=== PATIENT | female | born 1960 | race Caucasian/White ===

== ENCOUNTER 2018-02-14 15:15 | Emergency (ER) | payer MEDICARE ==
[~2018-02-14] VITALS: Ht 162.6 cm; Wt 90.7 kg
[~2018-02-14 15:15] MED LIST: ALBIPROI INH; ALBU3IS INH; ALBU90OI; ALBU90OI61 INH; AMLO5 PO; AZIT250 PO; BENA20; BUPR150ER PO; BUPR150T2 PO; BUPROPION; CALCA500CH PO; CEPH500; CEPH500 PO; CLIN300 PO; CLON2; CODBUTACEC PO; COMBIVENT; CORGARD40 MG PO; COUMADIN; CYCL10 PO; Cipro250 MG PO; Cleocin HCl150 MG PO; Cleocin HCl300 MG PO; DIAZ10 PO; DOCSEN PO; DOCU100 PO; DULO60 PO; Diovan160 MG PO; ENOX120I SQ; FENT100TP TOP; FENT50TP TD; FENT50TP TOP; FENT75TP TOP; FURO20 PO; FURO40 PO; GLIP10 PO; GLUC500 PO; HYDACE10B; HYDACE10B PO; HYDACE5; HYDACE5 PO; HYDGUAL120 PO; HYDMOR2 PO; HYDMOR4 PO; Hair, Skin & N1 EACH PO; INSLI100I SC; INSUASPI SC; INSULANPEN; INSULANPEN SC; IPRA.03NI; Janumet 50-1,01 EACH PO; LEVA.63IS IH; LEVA1.25 IH; LEVFLO500 PO; LEVO750 PO; LIDO5TP TOP; LIDOCAINE; LORA1 PO; LOTENSIN; METF500C PO; METF850 PO; METH10; METH10 PO; METH40; MICONAZOLE 7100 MG VG; MOM PO; Macrobid 100 M100 MG PO; NADO20 PO; NADO40; NADO40 PO; NAPR500; NAPR500 PO; NAPR500ERA; NYST100P TOP; OMEP20ER PO; ONDA4ODT; OSEL75CA PO; OXYACE10; OXYACE5T PO; OXYC10ER PO; OXYC30 PO; OXYCODONE; PARO20; POTCHL10ER PO; POTCHL20ER PO; PRED10 PO; PRED20 PO; PREG75 PO; PROC10 PO; PROC5 PO; PROM25 PO; Percocet 5-3251 EACH PO; RANI150; ROBITUSSIN100 MG/51 PO; RXHYDMOR2 PO; RXLORA1 PO; RXOXYACE PO; RXPROM25 PO; SENN187 PO; TAMO20; VALS80 PO; VENL75ER PO; VENLAFAXINE HCL75 MG PO; WARF1 PO; WARF2 PO; WARF5 PO; WARF6 PO; XARELTO15 MG PO; [UNRECOGNIZED DRUG - OTHER]; [UNRECOGNIZED DRUG - OTHER]
[2018-02-14] MEDS ORDERED: FENT50TP TOP (16:15)
[2018-02-14] MEDS ORDERED: FENTANYL TOP (16:21)
[2018-02-14] MEDS ORDERED: ASPI81CH PO (16:22)
[2018-02-14] MEDS ORDERED: OXYC1TAB11 PO ×2 (16:25→16:28)
== END 2018-02-14 16:49 | disposition home or self-care (01) ==
LOC: ER 15:15
DX: Z76.0 Encounter for issue of repeat prescription (principal); Z88.5 Allergy status to narcotic agent; Z88.0 Allergy status to penicillin; Z88.2 Allergy status to sulfonamides; Z88.1 Allergy status to other antibiotic agents; Z91.048 Other nonmedicinal substance allergy status; Z79.899 Other long term (current) drug therapy; Z79.891 Long term (current) use of opiate analgesic; Z79.4 Long term (current) use of insulin; Z79.84 Long term (current) use of oral hypoglycemic drugs; Z79.01 Long term (current) use of anticoagulants; Z79.2 Long term (current) use of antibiotics; Z85.3 Personal history of malignant neoplasm of breast; Z87.01 Personal history of pneumonia (recurrent); Z85.118 Personal history of other malignant neoplasm of bronchus and lung; Z85.830 Personal history of malignant neoplasm of bone
CPT/HCPCS: 99281